=== PATIENT | female | born 1975 | race Caucasian/White ===

== ENCOUNTER 2016-12-20 08:57 | Emergency (ER) | payer OTHER ==
[~2016-12-20] VITALS: Ht 160 cm; Wt 51.0 kg
[2016-12-20 08:59] VITALS: BP 120/85; PULSE 98; RESP 16; TEMP 98.2; O2SAT 97
[2016-12-20] MEDS ORDERED: PRED20 PO (09:12)
[2016-12-20] MEDS ORDERED: HYDR50TA94 PO (09:30)
[2016-12-20] MEDS ORDERED: hydrOXYzine HCL 50 MG TAB PO ONE (09:30)
[2016-12-20] MEDS ORDERED: PRED-503 PO (09:30)
[2016-12-20] MEDS ORDERED: RANI150T PO (09:30)
[2016-12-20] MEDS ORDERED: FAMOTIDINE 20 MG TAB PO ONE (09:30)
--- NOTE | 2016-12-20 09:31 | PD ---
HPI Chief Complaint: Allergic/Adverse Reaction Time Seen by Provider: 09:09 Travel History International Travel<30 days: No Contact w/Intl Traveler<30days: No Traveled to known affect area: No History of Present Illness HPI Is a 41-year-old woman who presents to the emergency department complaining of more than a week's worth of hives, generalized on the face trunk and arms and abdomen. Not some any on the legs. She is a history of psoriasis, and allergies, but has never really trouble hives before. The been ongoing for about 8 or 9 days now. She is been seen in urgent care twice, and solid director of billing. She recently bought a house here, and is been down here working on it. She is on a prednisone taper, has been for the past 4 days, has received 2 doses of parenteral steroids, and is taking Benadryl and Zyrtec when necessary. Despite this, she is very itchy and uncomfortable and presents to the emergency department today. History Past Medical History Medical History: Denies Significant Hx Tetanus Vaccination: Unknown Influenza Vaccination: Yes LMP: Now Social History Alcohol Use: Yes (Social) Tobacco Use: No Allergies-Medications (Allergen,Severity, Reaction): Coded Allergies: Penicillin (Verified Allergy, Intermediate, RASH & FEVER , 12/20/16) Reported Meds & Prescriptions Reported Meds & Active Scripts Active Reported Prednisone 20 Mg Tab 20 Mg PO DIRECTED 40 MG twice a day x 3 days, then 20 MG daily x 3 days, then 10 MG daily x 3 days Review of Systems Except as stated in HPI: all other systems reviewed are Neg Physical Exam Narrative GENERAL: Well-appearing 41-year-old woman, no acute distress. SKIN: Warm and dry. Diffuse urticarial hives on arms chest trunk neck and a little bit on the face. CARDIOVASCULAR: Warm and well perfused. RESPIRATORY: Normal rate and effort. MUSCULOSKELETAL: No deformities. NEUROLOGICAL: Awake and alert. No gross deficits. Data Data Last Documented VS Vital Signs Date Time Temp Pulse Resp B/P Pulse Ox O2 Delivery O2 Flow Rate FiO2 12/20/16 08:59 98.2 98 16 120/85 97 MDM Medical Decision Making Medical Screen Exam Complete: Yes Emergency Medical Condition: Yes Differential Diagnosis Urticaria, hives, allergic reaction, other Narrative Course Medical decision making 41-year-old woman with persistent hives for about 8 days now. She is on a steroid taper but is decreasing doses over 6 days. I recommend that she continue another 7 days at 40 without a taper. We'll also place her on antihistamines with an H1 and H2 michael. She has not been able identify any trigger. She did just move into a new house. Diagnosis Primary Impression: Urticaria Additional Instructions: Discontinue current steroid taper. Take 7 days of prednisone as prescribed. Take hydroxyzine and ranitidine for antihistamine effect. Do not combine with other antihistamines. Return to the emergency department for any abdominal pain, vomiting, or shortness of breath. Continue to follow-up with your primary physician for further evaluation. Consider seeing an structural drafter if symptoms persist. Med/Other Pt SpecificInfo: Prescription(s) given Scripts Ranitidine 150 Mg [id number] Mg PO BID #14 TAB Ref 0 Prov:Vinay Perkins MD 12/20/16 Hydroxyzine HCl 50 Mg Tab50 Mg PO TID PRN (ITCHING) #21 TAB Ref 0 Prov:Vinay Perkins MD 12/20/16 Prednisone (Deltasone)20 Mg Tab20 Mg PO BID 7 Days Prov:Vinay Perkins MD 12/20/16 Disposition: 01 DISCHARGE HOME Condition: Stable Vinay Perkins MD Dec 20, 2016 09:31
[2016-12-20] MEDS ORDERED: DEXAMETHASONE SOD PHOS 20 MG/5 ML VIAL IM ONE (09:45)
== END 2016-12-20 09:54 | disposition home or self-care (01) ==
LOC: PHED 08:57
DX: L50.9 Urticaria, unspecified (principal)
CPT/HCPCS: 96372; 99284; J1100